=== PATIENT | female | born 1985 | race Caucasian/White ===

== ENCOUNTER 2016-06-29 08:06 | Emergency (ER) | payer BC, MEDICAID ==
[2016-06-29] MEDS ORDERED: NS 1,000 ML IV ONE ×2 (08:36→09:18)
[2016-06-29 09:27] LABS: % IMMATURE GRANULYOCYTES 0.2 % (0.0-1.1); ABSOLUTE IMMATURE GRANULOCYTES 0.01 10^3/uL (0.00-0.10); ADD DIFF? NO; ADD MORPH? NO; ADD SCAN? NO; ATYPICAL LYMPHOCYTE FLAG 10 (0-99); FRAGMENT RBC FLAG 40 (0-99); HEMATOCRIT 39.3 % (38.0-47.0); HEMOGLOBIN 13.2 g/dL (12.6-16.3); LEFT SHIFT FLG 0 (0-99); LIPEMIA HEMOLYSIS FLAG 80 (0-99); MEAN CELL HEMOGLOBIN 26.3 pg (27.9-34.1); MEAN CELL HEMOGLOBIN CONCENTR. 33.6 g/dL (32.4-36.7); MEAN CELL VOLUME 78.4 fL (81.5-99.8); MEAN PLATELET VOLUME 9.9 fL (8.7-11.7); PLATELET CLUMPS FLAG 40 (0-99); PLATELET COUNT 376 10^3/uL (150-400); RED BLOOD CELL COUNT 5.01 10^6/uL (4.18-5.33); RED CELL DISTRIBUTION WIDTH 17.2 % (11.5-15.2)
[2016-06-29] MEDS ORDERED: METOCLOPRAMIDE 10 MG/2 ML VIAL IVP ONE (09:31)
--- NOTE | 2016-06-29 09:34 | EDPHY ---
H & P Time Seen by Provider: 06/29/16 09:02 HPI/ROS: CHIEF COMPLAINT: Vomiting HISTORY OF PRESENT ILLNESS: 31-year-old female presents to the emergency department by private vehicle complaining of multiple episodes of vomiting over last 4 days. The patient states that her symptoms got worse last night and she is concerned because she is unable to keep her medication down and presented to the emergency department for evaluation. She has diffuse abdominal pain. No diarrhea. No known ill contacts. No recent travel. No fevers or chills. Patient has a history of substance abuse and has been on methadone since February. She also has a history of chronic pain especially with her right shoulder. She has a history of epilepsy and has been compliant with her medications. Last seizure was 7 or 8 months ago. Last menstrual period just ended yesterday. She denies . REVIEW OF SYSTEMS: Constitutional: No fever, no chills. Eyes: No double or blurry vision. ENT: No sore throat. Respiratory: No cough, no shortness of breath. Cardiac: No chest pain. Gastrointestinal: Abdominal pain and vomiting as above. No diarrhea. Genitourinary: No dysuria. Musculoskeletal: No neck or back pain. Skin: No rashes. Neurological: No headache. Past Medical/Surgical History: Substance abuse, seizure disorder, brain aneurysm requiring coiling surgery, on methadone Social History: Single Smoking Status: Current some day smoker Physical Exam: General Appearance: Alert, no distress. Heart rate upon my examination was 101. Eyes: Pupils equal and round. Extraocular motions are all intact. ENT: Mouth: Mucous membranes slightly dry. Respiratory: No wheezing, rhonchi, or rales, lungs are clear to auscultation. Cardiovascular: Regular rate and rhythm. Gastrointestinal: Abdomen is soft and nontender, no masses, no rebound or guarding, bowel sounds normal. Neurological: Alert and oriented x 3, cranial nerves II through XII grossly intact Skin: Warm and dry, no rashes. Musculoskeletal: Nontender to palpate along the cervical, thoracic or lumbar spine. Neck is supple. Extremities: Full range of motion and no peripheral edema. Psychiatric: Patient is oriented X 3, there is no agitation. Constitutional: Initial Vital Signs Temperature (C) 36.7 C 06/29/16 08:10 Heart Rate 137 H 06/29/16 08:10 Respiratory Rate 22 H 06/29/16 08:10 Blood Pressure 109/94 H 06/29/16 08:10 O2 Sat (%) 97 06/29/16 08:10 O2 Delivery Mode Room Air Allergies/Adverse Reactions: ondansetron HCl [From Zofran (as hydrochloride)] Allergy (Verified 06/29/16 08: 09) seizure meds Allergy (Severe, Uncoded 11/13/14 13:29) Anaphylaxis Home Medications: Medication Instructions Recorded Bcp 11/13/14 Zonisamide [Zonegran 100MG (*)] 100 BID 11/13/14 Methadone HCl 06/29/16 Medical Decision Making ED Course/Re-evaluation: 31-year-old female presents to the emergency department with multiple episodes of vomiting since yesterday. Patient had IV established and was given 2 L of IV normal saline. She was also given 10 mg of Reglan IV. Laboratory studies are pending. Patient did have elevated liver function test which she thinks is from taking Tylenol. I encouraged her to follow up with primary care provider to have this repeated. Her lipase is 427 although she is no longer vomiting. She does not have any epigastric abdominal pain with palpation. She does not drink alcohol. This again should be repeated by her primary care provider. Patient verbalized understanding and agreed. Upon discharge patient tolerated p. o. fluid and requested to be discharged home. Patient does not have an acute abdomen. I do not think imaging studies are necessary. Differential Diagnosis: Including but not limited to gastroenteritis, gastritis, dehydration, peptic ulcer disease, GERD, hepatitis, pancreatitis - Data Points Laboratory Results: Laboratory Results 06/29/16 08:30 06/29/16 08:30 06/29/16 06/29/16 06/29/16 09:52 08:30 08:30 WBC RBC Hgb Hct MCV MCH MCHC RDW Plt Count MPV Neut % (Auto) Lymph % (Auto) [place] % (Auto) Eos % (Auto) Baso % (Auto) Nucleat RBC Rel Count Absolute Neuts (auto) Absolute Lymphs (auto) Absolute Monos (auto) Absolute Eos (auto) Absolute Basos (auto) Absolute Nucleated RBC Immature Gran % Immature Gran # Sodium Potassium Chloride Carbon Dioxide Anion Gap BUN Creatinine Estimated GFR Glucose Calcium Total Bilirubin Conjugated Bilirubin Unconjugated Bilirubin AST ALT Alkaline Phosphatase Total Protein Albumin Lipase Beta HCG, Qual NEGATIVE Specimen Hemolysis Urine Color YELLOW Urine Appearance CLEAR Urine pH 7.0 (5.0-7.5) Ur Specific [place] 1.014 (1.002-1.030) Urine Protein NEGATIVE (NEGATIVE) Urine Ketones NEGATIVE (NEGATIVE) Urine Blood NEGATIVE (NEGATIVE) Urine Nitrate NEGATIVE (NEGATIVE) Urine Bilirubin NEGATIVE (NEGATIVE) Urine Urobilinogen NEGATIVE EU EU (0.2-1.0) Ur Leukocyte Esterase NEGATIVE (NEGATIVE) Urine RBC 1-3 /hpf /hpf (0-3) Urine WBC 1-3 /hpf /hpf (0-3) Ur Epithelial Cells TRACE /lpf /lpf (NONE-1+) Urine Mucus TRACE /lpf /lpf (NONE-1+) Urine Glucose NEGATIVE (NEGATIVE) Influenza Typ A,B (DFA) NEGATIVE FOR FLU (NEGATIVE) 06/29/16 06/29/16 08:30 08:30 WBC 6.10 10^3/uL 10^3/uL (3.80-9.50) RBC 5.01 10^6/uL 10^6/uL (4.18-5.33) Hgb 13.2 g/dL g/dL (12.6-16.3) Hct 39.3 % % (38.0-47.0) MCV 78.4 fL L fL (81.5-99.8) MCH 26.3 pg L pg (27.9-34.1) MCHC 33.6 g/dL g/dL (32.4-36.7) RDW 17.2 % H % (11.5-15.2) Plt Count 376 10^3/uL 10^3/uL (150-400) MPV 9.9 fL fL (8.7-11.7) Neut % (Auto) 73.2 % % (39.3-74.2) Lymph % (Auto) 20.0 % % (15.0-45.0) [place] % (Auto) 6.4 % % (4.5-13.0) Eos % (Auto) 0.0 % L % (0.6-7.6) Baso % (Auto) 0.2 % L % (0.3-1.7) Nucleat RBC Rel Count 0.0 % % (0.0-0.2) Absolute Neuts (auto) 4.47 10^3/uL 10^3/uL (1.70-6.50) Absolute Lymphs (auto) 1.22 10^3/uL 10^3/uL (1.00-3.00) Absolute Monos (auto) 0.39 10^3/uL 10^3/uL (0.30-0.80) Absolute Eos (auto) 0.00 10^3/uL L 10^3/uL (0.03-0.40) Absolute Basos (auto) 0.01 10^3/uL L 10^3/uL (0.02-0.10) Absolute Nucleated RBC 0.00 10^3/uL 10^3/uL (0-0.01) Immature Gran % 0.2 % % (0.0-1.1) Immature Gran # 0.01 10^3/uL 10^3/uL (0.00-0.10) Sodium 141 mEq/L mEq/L (134-144) Potassium 4.8 mEq/L mEq/L (3.5-5.2) Chloride 104 mEq/L mEq/L (97-110) Carbon Dioxide 19 mEq/l L mEq/l (22-31) Anion Gap 18 mEq/L H mEq/L (8-16) BUN 17 mg/dL mg/dL (7-23) Creatinine 0.9 mg/dL mg/dL (0.6-1.0) Estimated GFR > 60 Glucose 129 mg/dL H mg/dL (70-100) Calcium 10.0 mg/dL mg/dL (8.5-10.4) Total Bilirubin 0.9 mg/dL mg/dL (0.1-1.4) Conjugated Bilirubin 0.7 mg/dL H mg/dL (0.0-0.5) Unconjugated Bilirubin 0.2 mg/dL mg/dL (0.0-1.1) AST 64 IU/L H IU/L (14-46) ALT 36 IU/L IU/L (9-52) Alkaline Phosphatase 134 IU/L H IU/L (38-126) Total Protein 9.2 g/dL H g/dL (6.3-8.2) Albumin 4.9 g/dL g/dL (3.5-5.0) Lipase 427.0 IU/L H IU/L (23-300) Beta HCG, Qual Specimen Hemolysis 160 Urine Color Urine Appearance Urine pH Ur Specific [place] Urine Protein Urine Ketones Urine Blood Urine Nitrate Urine Bilirubin Urine Urobilinogen Ur Leukocyte Esterase Urine RBC Urine WBC Ur Epithelial Cells Urine Mucus Urine Glucose Influenza Typ A,B (DFA) Medications Given: Discontinued Medications Sodium Chloride (Ns) 1,000 mls @ 0 mls/hr IV ONCE ONE PRN Reason: Wide Open Stop: 06/29/16 08:37 Last Admin: 06/29/16 08:30 Dose: 1,000 mls Sodium Chloride (Ns) 1,000 mls @ 0 mls/hr IV ONCE ONE PRN Reason: Wide Open Stop: 06/29/16 09:19 Last Admin: 06/29/16 09:15 Dose: 1,000 mls Metoclopramide HCl (Reglan Injection) 10 mg IVP EDNOW ONE Stop: 06/29/16 09:32 Last Admin: 06/29/16 09:39 Dose: 10 mg Departure - Departure Disposition: Home, Routine, Self-Care Clinical Impression: Vomiting Qualifiers: Vomiting type: unspecified Vomiting Intractability: non-intractable Nausea presence: with nausea Qualified Code(s): R11.2 - Nausea with vomiting, unspecified Condition: Good Instructions: Acute Nausea and Vomiting (ED) Additional Instructions: Clear liquids and then advance diet as tolerated. Return if you develop recurring vomiting or if you feel worse in any way. 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
[2016-06-29 09:39] LABS: ALANINE AMINOTRANSFERASE 36 IU/L (9-52); ALBUMIN 4.9 g/dL (3.5-5.0); ALKALINE PHOSPHATASE 134 IU/L (38-126); ANION GAP 18 mEq/L (8-16); ASPARTATE AMINOTRANSFERASE 64 IU/L (14-46); BILIRUBIN,TOTAL 0.9 mg/dL (0.1-1.4); BILIRUBIN-CONJUGATED 0.7 mg/dL (0.0-0.5); BILIRUBIN-UNCONJUGATED 0.2 mg/dL (0.0-1.1); CARBON DIOXIDE 19 mEq/l (22-31); CHLORIDE 104 mEq/L (97-110); CREATININE 0.9 mg/dL (0.6-1.0); GLOMERULAR FILTRATION RATE > 60; GLUCOSE 129 mg/dL (70-100); POTASSIUM 4.8 mEq/L (3.5-5.2); SODIUM 141 mEq/L (134-144); SPECIMEN HEMOLYSIS 160; TOTAL PROTEIN 9.2 g/dL (6.3-8.2)
[2016-06-29 10:01] LABS: COLOR YELLOW; LEUKOCYTE ESTERASE,URINE NEGATIVE (NEGATIVE); NITRITE,URINE NEGATIVE (NEGATIVE)
[2016-06-29 10:02] LABS: MUCUS TRACE /lpf (NONE-1+)
[2016-06-29 10:46] VITALS: BP 103/83; PULSE 94; RESP 20; TEMP 98.4; O2SAT 96
== END 2016-06-29 10:49 | disposition home or self-care (01) ==
DX: R11.2 Nausea with vomiting, unspecified (principal); F17.200 Nicotine dependence, unspecified, uncomplicated
CPT/HCPCS: 96374; J2765

== ENCOUNTER 2017-03-15 06:53 | Emergency (ER) | payer MEDICAID ==
[2017-03-15 06:58] VITALS: TEMP 97.9
[2017-03-15] MEDS ORDERED: NS 500 ML IV ONE (07:04)
--- NOTE | 2017-03-15 07:09 | EDPHY ---
H & P Time Seen by Provider: 03/15/17 07:00 HPI/ROS: CHIEF COMPLAINT: seizure HISTORY OF PRESENT ILLNESS: The patient is a 31-year-old female with a history of seizure disorder and brain aneurysmal coiling who presents to the emergency department after having seizure. The patient currently takes zonisamide and has been compliant with her medication. Patient was diagnosed with seizures and high school and was diagnosed with a brain aneurysm which was clipped at age 23. The patient went to work this morning with her boyfriend. She felt of prodrome of his seizure. This lasted for about 5 minutes and then she had seizure activity. She laid on the floor prior to the seizure activity. She has not sustain any trauma. She denies headache. She has mild body discomfort post seizure which is typical. The patient denies weakness or numbness. No neck pain or stiffness. No recent trauma. Patient states that she has been feeling normal for the past few days. She has had no recent headaches or other symptoms leading up to the seizure. Last seizure was 1 year ago. REVIEW OF SYSTEMS: My complete review of systems is negative except as mentioned in the HPI. Past Medical/Surgical History: Includes seizure disorder, brain aneurysm, methadone use, migraines Past surgical history: Aneurysmal clipping Social history: The patient vaps. She denies drug use. Smoking Status: Current some day smoker Physical Exam: Vitals noted GENERAL: Well-appearing, in no acute distress, alert. HEAD: No evidence of trauma. EYES: PERRLA, EOMI, normal to inspection. ENT: Airway intact, no dental or oral injury, no malocclusion, no hemotympanum , normal external examination. NECK: The trachea is midline. There is no crepitus. The C-spine is nontender. NEXUS criteria is negative (no midline tenderness, no distracting injury, no altered mental status, no recent alcohol use, no focal neurologic deficit). RESPIRATORY: Clear to auscultation bilaterally, no rales, rhonchi or wheezing. There is no crepitus or palpable rib fractures. CVS: Regular rate and rhythm, no rubs, murmurs, or gallops. ABDOMEN: Soft, nontender, nondistended, normal bowel sounds, no bruising or abrasions. Pelvis: Stable. No tenderness palpation. Hips full range of motion. BACK: Normal to inspection, no spinal tenderness, no spinal step off, no notable bruising or abrasions. SKIN: Normal color, warm, dry. No pallor or diaphoresis. EXTREMITIES: Atraumatic, neurovascularly intact distally in all extremities, pelvis is stable , hips with full range of motion, moves all extremities freely. NEURO/PSYCH: Higher functions: Alert and Oriented x3. Normal speech and cognition. Normal mood and affect. Cranial nerves: Normal as tested. Cerebellar: Normal as tested. Good finger to nose, good [id number], normal gait. Peripheral exam: Normal motor exam. Normal sensation. Normal reflexes. Constitutional: Initial Vital Signs Temperature (C) 36.6 C 03/15/17 06:55 Heart Rate 85 03/15/17 06:55 Respiratory Rate 20 03/15/17 06:55 Blood Pressure 121/98 H 03/15/17 06:55 O2 Sat (%) 96 03/15/17 06:55 O2 Delivery Mode Room Air Allergies/Adverse Reactions: ondansetron HCl [From Zofran (as hydrochloride)] Allergy (Verified 03/15/17 06: 59) seizure meds Allergy (Severe, Uncoded 11/13/14 13:29) Anaphylaxis Home Medications: Medication Instructions Recorded Bcp 11/13/14 Zonisamide [Zonegran 100MG (*)] 100 BID 11/13/14 Methadone HCl 06/29/16 Medical Decision Making Procedures: Procedure: Right EJ placement Indication: IV access A right EJ was placed in typical fashion without complication ED Course/Re-evaluation: In the emergency department I met EMS on arrival. I discussed the plan with the patient. Answered all her questions. EMS and nursing staff were unable to obtain IV access. I placed a right EJ without difficulty. Patient was given normal saline [address] was ordered due to her history and seizure activity. Laboratory studies were ordered. I reviewed the patient's laboratory studies. Her CBC was essentially unremarkable. Her chemistry panel was notable for slightly low bicarb at 20. was negative. Coags were normal. Awaiting head CT. 834: I discussed the results with Dr. Ferrer. Head CT shows no acute disease or bleed. I rechecked the patient. She was doing well. She had no focal neurologic findings. She denied headache or neck pain. She is given warnings prior to leaving. She will return with worsening symptoms. Differential Diagnosis: My differential includes but is not limited to seizure, subarachnoid hemorrhage , subdural hematoma, epidural hematoma, skull fracture, spinal fracture, electrolyte abnormality, sugar abnormality, medication noncompliance, electrolyte abnormality, sugar abnormality - Data Points Laboratory Results: Laboratory Results 03/15/17 07:20 03/15/17 07:20 03/15/17 03/15/17 03/15/17 07:20 07:20 07:20 WBC RBC Hgb Hct MCV MCH MCHC RDW Plt Count MPV Neut % (Auto) Lymph % (Auto) [place] % (Auto) Eos % (Auto) Baso % (Auto) Nucleat RBC Rel Count Absolute Neuts (auto) Absolute Lymphs (auto) Absolute Monos (auto) Absolute Eos (auto) Absolute Basos (auto) Absolute Nucleated RBC Immature Gran % Immature Gran # PT 12.6 SEC SEC (12.0-15.0) INR 0.95 (0.83-1.16) APTT 24.6 SEC SEC (23.0-38.0) Sodium 140 mEq/L mEq/L (134-144) Potassium 4.5 mEq/L mEq/L (3.5-5.2) Chloride 105 mEq/L mEq/L (97-110) Carbon Dioxide 20 mEq/l L mEq/l (22-31) Anion Gap 15 mEq/L mEq/L (8-16) BUN 16 mg/dL mg/dL (7-23) Creatinine 0.9 mg/dL mg/dL (0.6-1.0) Estimated GFR > 60 Glucose 113 mg/dL H mg/dL (70-100) Calcium 10.2 mg/dL mg/dL (8.5-10.4) Beta HCG, Qual NEGATIVE 03/15/17 07:20 WBC 6.08 10^3/uL 10^3/uL (3.80-9.50) RBC 4.77 10^6/uL 10^6/uL (4.18-5.33) Hgb 12.8 g/dL g/dL (12.6-16.3) Hct 38.0 % % (38.0-47.0) MCV 79.7 fL L fL (81.5-99.8) MCH 26.8 pg L pg (27.9-34.1) MCHC 33.7 g/dL g/dL (32.4-36.7) RDW 16.0 % H % (11.5-15.2) Plt Count 319 10^3/uL 10^3/uL (150-400) MPV 9.3 fL fL (8.7-11.7) Neut % (Auto) 73.0 % % (39.3-74.2) Lymph % (Auto) 20.1 % % (15.0-45.0) [place] % (Auto) 5.6 % % (4.5-13.0) Eos % (Auto) 0.8 % % (0.6-7.6) Baso % (Auto) 0.2 % L % (0.3-1.7) Nucleat RBC Rel Count 0.0 % % (0.0-0.2) Absolute Neuts (auto) 4.44 10^3/uL 10^3/uL (1.70-6.50) Absolute Lymphs (auto) 1.22 10^3/uL 10^3/uL (1.00-3.00) Absolute Monos (auto) 0.34 10^3/uL 10^3/uL (0.30-0.80) Absolute Eos (auto) 0.05 10^3/uL 10^3/uL (0.03-0.40) Absolute Basos (auto) 0.01 10^3/uL L 10^3/uL (0.02-0.10) Absolute Nucleated RBC 0.00 10^3/uL 10^3/uL (0-0.01) Immature Gran % 0.3 % % (0.0-1.1) Immature Gran # 0.02 10^3/uL 10^3/uL (0.00-0.10) PT INR APTT Sodium Potassium Chloride Carbon Dioxide Anion Gap BUN Creatinine Estimated GFR Glucose Calcium Beta HCG, Qual Medications Given: Discontinued Medications Sodium Chloride (Ns) 500 mls @ 0 mls/hr IV ONCE ONE; Wide Open PRN Reason: Protocol Stop: 03/15/17 07:05 Last Admin: 03/15/17 07:39 Dose: 500 mls Departure - Departure Disposition: Home, Routine, Self-Care Clinical Impression: Seizure Condition: Good Instructions: Epilepsy (ED) Additional Instructions: Return with worsening headache, neck pain, recurrent seizures or any other concerns. Referrals: Stephen Amaya MD [Medical Doctor] - 2-3 days, if not improved
[2017-03-15 07:32] LABS: % IMMATURE GRANULYOCYTES 0.3 % (0.0-1.1); ABSOLUTE IMMATURE GRANULOCYTES 0.02 10^3/uL (0.00-0.10); ADD DIFF? NO; ADD MORPH? NO; ADD SCAN? NO; ATYPICAL LYMPHOCYTE FLAG 20 (0-99); FRAGMENT RBC FLAG 20 (0-99); HEMOGLOBIN 12.8 g/dL (12.6-16.3); LEFT SHIFT FLG 0 (0-99); LIPEMIA HEMOLYSIS FLAG 80 (0-99); MEAN CELL HEMOGLOBIN 26.8 pg (27.9-34.1); MEAN CELL HEMOGLOBIN CONCENTR. 33.7 g/dL (32.4-36.7); MEAN CELL VOLUME 79.7 fL (81.5-99.8); MEAN PLATELET VOLUME 9.3 fL (8.7-11.7); PLATELET CLUMPS FLAG 0 (0-99); PLATELET COUNT 319 10^3/uL (150-400); RED BLOOD CELL COUNT 4.77 10^6/uL (4.18-5.33)
[2017-03-15 07:44] LABS: INR 0.95 (0.83-1.16); PROTIME(PATIENT) 12.6 SEC (12.0-15.0)
[2017-03-15 07:45] LABS: APTT 24.6 SEC (23.0-38.0)
[2017-03-15 07:52] LABS: ANION GAP 15 mEq/L (8-16); CALCIUM 10.2 mg/dL (8.5-10.4); CARBON DIOXIDE 20 mEq/l (22-31); CHLORIDE 105 mEq/L (97-110); CREATININE 0.9 mg/dL (0.6-1.0); GLOMERULAR FILTRATION RATE > 60; GLUCOSE 113 mg/dL (70-100); POTASSIUM 4.5 mEq/L (3.5-5.2); SODIUM 140 mEq/L (134-144)
[2017-03-15 08:46] VITALS: BP 107/81; PULSE 68; RESP 16; O2SAT 98
== END 2017-03-15 08:49 | disposition home or self-care (01) ==
LOC: EDUNIT#
DX: G40.909 Epilepsy, unspecified, not intractable, without status epilepticus (principal); F17.200 Nicotine dependence, unspecified, uncomplicated; E86.9 Volume depletion, unspecified